=== PATIENT | male | born 2000 | race Caucasian/White ===

== ENCOUNTER → 2020-09-29 13:13 | Outpatient (BNVA) | payer OTHER, SELFPAY | PROVIDERS: Visit Provider Nurse Practitioner Family | DX: J06.9 Acute upper respiratory infection, unspecified (principal); Z20.822 Contact with and (suspected) exposure to COVID-19 | CPT/HCPCS: 87635 ==

== ENCOUNTER 2021-05-12 14:57 | Emergency (ER) | payer SELFPAY ==
[2021-05-12 15:00] VITALS: BP 122/75; PULSE 103; RESP 18; TEMP 36.8; O2SAT 97; BMI 17.1
[2021-05-12 15:09] VITALS: PULSE 97; RESP 16; O2SAT 99
--- NOTE | 2021-05-12 15:13 | ED_ITS ---
HPI - Wound/Laceration General: Chief Complaint: Wound/Laceration Stated Complaint: Gash in wrist Time Seen by Provider: 05/12/21 15:07 History of Present Illness: Patient is a 20-year-old male comes to the ED with a laceration to left wrist. Injury occurred just prior to arrival. Patient was working on a roof. He was climbing down off a roof and his left glove got caught on a piece of the metal roof causing a laceration to his left wrist. Right after injury patient immediately wrapped it in some towels and came to the ED. Denies any current pain. He has full range of motion of left hand and fingers. He did not clean or irrigate laceration before arrival. Patient says he is up-to-date on his tetanus. Associated symptoms: Denies chills, fever(s), nausea or vomiting Review of Systems Const: Denies: fever(s), chills or fatigue Eyes: Denies: change in vision or eye discomfort ENMT: Denies: throat pain, odynophagia, nasal discharge or nasal congestion Card: Denies: chest pain, palpitations, edema, swelling of feet/ankles, dyspnea on exertion or orthopnea Resp: Denies: dyspnea, productive cough or non-productive cough GI: Denies: abdominal pain, nausea, vomiting, diarrhea, constipation or hematochezia : Denies: flank pain, difficulty urinating, dysuria or hematuria Musc: Denies: neck pain, back pain or extremity swelling Skin/Breast: Reports: new lesions (left wrist laceration); Denies: rash Neuro: Denies: headache(s), numbness in extremities or weakness in extremities [facility] ED PFSH: Medical History No pertinent family history Surgical History No pertinent past surgical history Physical Exam Const: COMMON NORMALS: no acute distress, patient oriented x3, healthy appearing and alert GENERAL APPEARANCE: cooperative and comfortable HENMT: COMMON NORMALS: normocephalic HEAD & SCALP: normocephalic MOUTH: Normal oral and palatal mucosa present THROAT: posterior oropharynx normal and uvula midline Neck/C-Spine: COMMON NORMALS: supple GENERAL: Yes normal visual inspection Resp: COMMON NORMALS: normal respiratory effort, No retractions, No use of accessory muscles and clear to auscultation bilaterally AUSCULTATION: clear to auscultation bilaterally Cardio: COMMON NORMALS: regular rate, regular rhythm, S1 normal heart sound present, S2 normal heart sound present, No gallops present (Cardio), No clicks present (Cardio), No murmurs present (Cardio) and Peripheral pulses 2+ throughout RATE: regular rate RHYTHM: regular rhythm HEART SOUNDS: S1 normal heart sound present and S2 normal heart sound present PERIPHERAL PULSES: Peripheral pulses 2+ throughout GI: COMMON NORMALS: Normal to inspection, nondistended, normoactive bowel sounds present, Soft to palpation, non-tender and no masses PALPATION: Yes Soft to palpation : COMMON NORMALS: Yes no CVA tenderness BLADDER/KIDNEY EXAM: Yes no CVA tenderness Back/Pelvis: COMMON NORMALS: no CVA tenderness Extremity: NARRATIVE EXTREMITY EXAM: Left wrist?superficial 5 cm linear laceration that is running vertical on the radial aspect of wrist. No active bleeding. No foreign body or contaminants seen. Patient has full range of motion in left hand and fingers. Sensation to hand intact. GENERAL: Yes normal exam except as noted Neuro: COMMON NORMALS: patient oriented x3 and moves all extremities SEN SORIUM/ORIENTATION: Yes alert Skin: NARRATIVE SKIN EXAM: Left wrist?superficial 5 cm linear laceration that is running vertical on the radial aspect of wrist. No active bleeding. No foreign body or contaminants seen. Patient has full range of motion in left hand and fingers. Sensation hand intact. GENERAL SKIN EXAM: dry skin Procedures Laceration Laceration 1: Site: upper extremity (left wrist) Side (If applicable): left Size (cm): 5 Description: linear Depth: simple, single layer Local Anesthetic: lidocaine 1% and with epi Amount of anesthesia used (mL): 10 Pre-repair: irrigated extensively (With normal saline and skin cleaned with alcohol swab.) Skin layer closed with: nylon Size (cm): 4-0 Number of sutures: 7 Technique: simple, interrupted Course Vital Signs: Vital signs: Vital Signs Temperature 98.2 F 05/12/21 15:00 Pulse Rate 97 05/12/21 15:09 Respiratory Rate 16 05/12/21 15:09 Blood Pressure 122/75 05/12/21 15:00 Pulse Oximetry 99 05/12/21 15:09 MDM - Wound/Laceration Medical Decision Making Patient is a 20-year-old male comes to the ED with a superficial laceration to left wrist. Injury occurred while working. He was climbing down off a metal roof and his left glove got caught on a metal sheet causing laceration. No active bleeding. Patient has full sensation in the left hand and full range of motion hand and fingers. Patient up-to-date on his tetanus. Laceration was irrigated extensively with normal saline and then skin was cleaned with alcohol swab. 7 sutures were placed to close laceration. Patient was instructed on how to care for laceration site and told to have sutures removed in 7 to 10 days. Return to ED precautions given patient was given a prophylactic prescription for cephalexin. Patient understood and agreed with plan. Discharge Plan Discharge Patient Disposition: Home Clinical Impression: Laceration Condition: Stable Prescriptions: New cephalexin 500 mg capsule 500 mg PO Q6H 4 Days Qty: 16 0RF Discharge Orders: Discharge ED (Routine); Ordered 05/12/21 Ordered By: Lobito Vu Discharge Diet: Regular Discharge Activity: Limit activity as instructed Patient Instructions: Care For Your Stitches (ED), Laceration (DC) Activity Restrictions/Additional Instructions: Take full course of antibiotics as prescribed. Keep laceration site clean and dry for the next 24 hours. Then after that you can clean w/ soap & water and re-bandage daily. Keep laceration site covered when working. Watch for signs of infection such as redness, warmth, increased tenderness and puslike drainage. If you see the signs of infection return to the ED, urgent care or PCP for reevaluation. call your PCP to schedule a follow-up appointment for reevaluation and suture removal in about 7-10 days. Follow discharge plans as discussed. You can return to the ED if symptoms worsen. Coding Level of Care Code ED [employer] for [employer] [facility]epeda Exam Comprehensive
== END 2021-05-12 16:12 | disposition home or self-care (01) ==
PROVIDERS: Emergency Provider Physician Assistant
DX: S61.512A Laceration without foreign body of left wrist, initial encounter (principal); W26.8XXA Contact with other sharp object(s), not elsewhere classified, initial encounter
CPT/HCPCS: 12002; 99283

== ENCOUNTER → 2024-07-16 13:34 | Outpatient (BNVA) | payer SELFPAY | PROVIDERS: PCP Nurse Practitioner Family; Visit Provider Podiatrist Foot & Ankle Surgery | DX: M25.571 Pain in right ankle and joints of right foot (principal); S93.401A Sprain of unspecified ligament of right ankle, initial encounter; S82.831A Other fracture of upper and lower end of right fibula, initial encounter for closed fracture; X50.9XXA Other and unspecified overexertion or strenuous movements or postures, initial encounter | CPT/HCPCS: 73610 ==